=== PATIENT | female | born 2000 | race Caucasian/White ===

== ENCOUNTER 2024-09-20 14:00 | Emergency (ER) | payer BC, SELFPAY ==
[2024-09-20 14:07] VITALS: BP 127/73
--- NOTE | 2024-09-20 14:20 | ED.GENMED ---
History of Present Illness
General
Chief Complaint: Musculo-Skeletal Complaint
Time Seen by Provider: 09/20/24 14:14
History of Present Illness
History of Present Illness:
24-year-old female presents to the emergency department with both parents for evaluation of a left clavicle injury. 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 She is able to move the left
elbow and wrist. Denies head injury or loss of consciousness. No dyspnea.
Review of Systems
Review of Systems
Allergies reviewed?: Yes
All Other Systems: ROS reviewed and negative except as documented in HPI and ROS
Phy Exam
Physical Exam
Physical Exam:
GEN: Well appearing, NAD, WDWN
HEENT: Oral mucosa moist, no scleral icterus
Cardiac: Regular rate
Lung: No respiratory distress, no tachypnea
MSK: No gross deformity or injuries, no skin tenting to the left clavicle, no gross deformity to the left shoulder
Skin: Good color, no pallor or jaundice, no rashes
Neuro: AO x3, moves all extremities freely
Psych: Calm, cooperative
Course
Orders/Labs/Results
Orders:
Orders
09/20/24 14:19
Ketorolac [Toradol] 30 mg IM NOW STA
CR Clavicle - Left Complete Urgent
Comment:
Reason For Exam: fall trauma
CR Shoulder, Trauma - Left Urgent
Comment:
Reason For Exam: fall injury
Vital Signs
Initial and Last Documented VS:
Initial Vital Signs
Temp Pulse Resp BP Pulse Ox
98.5 F 72 18 127/73 99
09/20/24 14:07 09/20/24 14:07 09/20/24 14:07 09/20/24 14:07 09/20/24 14:07
Last Documented Vital Signs
Temp Pulse Resp BP Pulse Ox
98.5 F 72 18 127/73 99
09/20/24 14:07 09/20/24 14:07 09/20/24 14:07 09/20/24 14:07 09/20/24 14:07
MDM/Problems Addressed
MDM/Problems Addressed:
Imaging reveals a displaced midshaft left clavicle fracture with no evidence for shoulder injury. Patient is placed in a sling, discussed supportive care and will follow-up with orthopedics when she returns to her locale
*Critical Care Note
Total Time (30-74mins, 75-104mins- exclusive of procedures): Not Applicable
ED Attending Note
-
Portions of this chart may have been created with voice recognition software.� Occasional wrong word or��sound alike� substitutions may have occurred due to the inherent limitations of voice recognition software.
Discharge Plan
Departure
Patient Disposition: Home (Routine Discharge)
Date of Disposition: 09/20/24
Time of Disposition: 15:04
Patient with high blood pressure during this ER visit?: No
Discharge Problem:
Closed fracture of left clavicle
Instructions: Clavicle fracture
Referrals:
DANYELL GÓMEZ [Other]
Stand Alone Forms: Back to School
Activity Restrictions/Additional Instructions:
Take 600mg ibuprofen and 650 mg acetaminophen every 6-8 hours for pain control
Ice the collar bone often
Remain in the sling, however you should take the sling off and let the arm hang often to prevent elbow stiffness, which will compromise rehab
Follow up with an orthopedist locally within 1-2 weeks
Interventions
Interventions:
*Risk Screen - Suicide Last Done: 09/20/24 14:07
*General Assessment Last Done: 09/20/24 14:07
*ED COVID-19 Vaccine History Last Done: 09/20/24 14:07
Discharge Date and Time
Print Language: [id number]
[2024-09-20] MEDS: TORADOL 30 MG IM (14:23)
[2024-09-20 15:49] VITALS: BP 139/79
== END 2024-09-20 15:25 | disposition home or self-care (01) ==
LOC: EMR 14:00
PROVIDERS: EMERGENCY PHYSICIAN Emergency Medicine
DX: S42.022A Displaced fracture of shaft of left clavicle, initial encounter for closed fracture (principal); W19.XXXA Unspecified fall, initial encounter
CPT/HCPCS: 99284; 96372; 73000; 73030